=== PATIENT | female | born 1945 | race Caucasian/White ===

== ENCOUNTER 2016-03-18 | Outpatient (CLI) | END 2016-03-18 20:39 | disposition critical access hospital (66) | CPT/HCPCS: A0425; A0429 ==

== ENCOUNTER 2016-03-18 21:06 | Emergency (ER) | payer OTHER ==
[2016-03-18] MEDS ORDERED: ACETAMINOPHEN 325 MG TABLET PO STA (22:42)
[2016-03-18] MEDS ORDERED: ACETAMINOPHEN 325 MG TABLET PO ONE (22:44)
== END 2016-03-19 00:02 | disposition home or self-care (01) ==
DX: S06.0X0A Concussion without loss of consciousness, initial encounter (principal); S00.03XA Contusion of scalp, initial encounter; S20.229A Contusion of unspecified back wall of thorax, initial encounter; W01.0XXA Fall on same level from slipping, tripping and stumbling without subsequent striking against object, initial encounter; M41.9 Scoliosis, unspecified; M51.34 Other intervertebral disc degeneration, thoracic region
CPT/HCPCS: 70450; 72070; 99283; 99284; A9270

== ENCOUNTER 2017-07-17 17:22 | Outpatient (CLI) | payer OTHER ==
--- NOTE | 2017-07-18 22:04 | XRAY Report ---
EXAM: LEFT HIP RADIOGRAPHY EXAM DATE: 07/17/2017 06:05 PM. CLINICAL HISTORY: Hip pain, left, chronic. COMPARISON: None. TECHNIQUE: 2 views. FINDINGS: Bones: Normal. No fractures or bone lesion. Joints: Moderate hip joint space narrowing, some subchondral sclerosis is seen. Marginal osteophytosi s is seen at the femoral head. No bone deformity. Soft Tissues: Normal. No soft tissue swelling. IMPRESSION: 1. Moderate hip joint space narrowing, some subchondral sclerosis. Marginal osteophytosis at the femo ral head. No bone deformity. Kellgren-Paco Grade 3. Kellgren and Paco classification of osteoarthritis: Grade 0: no radiographic features of osteoarthritis are present Grade 1: doubtful joint space narrowing (JSN) and possible osteophytic lipping Grade 2: definite osteophytes and possible JSN on anteroposterior weight-bearing radiograph Grade 3: multiple osteophytes, definite JSN, sclerosis, possible bony deformity Grade 4: large osteophytes, marked JSN, severe sclerosis and definite bony deformity [facility] Referring Provider Line: [phone] SITE ID: [id number]
--- NOTE | 2017-07-18 22:04 | XRAY Report ---
EXAM: LEFT KNEE RADIOGRAPHY EXAM DATE: 07/17/2017 06:06 PM. CLINICAL HISTORY: Hip pain, left, chronic. COMPARISON: None. TECHNIQUE: 3 views. [id number] FINDINGS: Bones: Osteophytosis at the patellofemoral joint both medially and superiorly. Minimal subchondral sc lerosis at the medial and lateral tibial plateau. Joints: Normal. No effusion. No subluxations. Soft Tissues: Normal. No soft tissue swelling. IMPRESSION: 1. Some osteophytosis at the patellofemoral joint both medially and superiorly. Minimal subchondral s clerosis at the medial and lateral tibial plateau. No joint effusion. No fractures. [facility] Referring Provider Line: [phone] SITE ID: [id number]
== END 2017-07-17 17:23 | disposition home or self-care (01) ==
LOC: DI 17:22
PROVIDERS: ATTEND Internal Medicine
DX: M25.562 Pain in left knee (principal); M25.552 Pain in left hip; M25.551 Pain in right hip; M25.762 Osteophyte, left knee

== ENCOUNTER 2017-09-29 11:17 | Outpatient (CLI) | payer MEDICARE | END 2017-09-29 11:18 | disposition home or self-care (01) | LOC: SC 11:17 | PROVIDERS: ATTEND Internal Medicine Pulmonary Disease | DX: G47.10 Hypersomnia, unspecified (principal); R06.83 Snoring; G47.8 Other sleep disorders | CPT/HCPCS: 99203; G0463; 99212 ==

== ENCOUNTER 2017-12-07 19:25 | Outpatient (CLI) | payer MEDICARE | END 2017-12-07 19:26 | disposition home or self-care (01) | LOC: SC 19:25 | PROVIDERS: ATTEND Internal Medicine Pulmonary Disease | DX: G47.33 Obstructive sleep apnea (adult) (pediatric) (principal); G47.61 Periodic limb movement disorder | CPT/HCPCS: 95810 ==

== ENCOUNTER 2018-01-05 09:32 | Outpatient (CLI) | payer MEDICARE | END 2018-01-05 09:33 | disposition home or self-care (01) | LOC: SC 09:32 | PROVIDERS: ATTEND Internal Medicine Pulmonary Disease | DX: G47.33 Obstructive sleep apnea (adult) (pediatric) (principal) | CPT/HCPCS: 99213; G0463; 99212 ==

== ENCOUNTER 2018-08-02 08:02 | Outpatient (CLI) | payer MEDICARE ==
[2018-08-02 19:15] LABS: BUN - BLOOD UREA NITROGEN 17 mg/dL (6-20); CALCIUM 8.9 mg/dL (8.5-10.3); CARBON DIOXIDE - CO2 28 mmol/L (21-32); CHLORIDE 104 mmol/L (101-111); CHOL/HDL RATIO 6.1 (<4.4); CHOLESTEROL 231 mg/dL; CREATININE 0.6 mg/dL (0.4-1.0); GFR - MDRD 99 (>89); GLUCOSE 101 mg/dL (70-100); HDL CHOLESTEROL 38 mg/dL; LDL CHOLESTEROL,CALCULATED 132 mg/dL; LDL/HDL RATIO 3.5 (<4.4); SODIUM 139 mmol/L (135-145); VLDL CHOLESTEROL 61 mg/dL
== END 2018-08-02 08:03 | disposition home or self-care (01) ==
LOC: LAB.F 08:02
PROVIDERS: ATTEND Internal Medicine
DX: E03.9 Hypothyroidism, unspecified (principal); Z13.6 Encounter for screening for cardiovascular disorders
CPT/HCPCS: 36415; 80048; 80061; 83721; 84443

== ENCOUNTER 2019-01-06 09:33 | Day surgery (SDC) | payer MEDICARE ==
[2019-01-06] MEDS ORDERED: LACTATED RINGERS 1,000 ML IV ONE (09:56)
[2019-01-06] MEDS ORDERED: fentaNYL 100 MCG/2 ML VIAL IVP ONE (10:32)
[2019-01-06] MEDS ORDERED: MIDAZOLAM 2 MG/2 ML VIAL IVP ONE (10:32)
[2019-01-06 12:19] VITALS: BP 99/63
== END 2019-01-06 09:34 | disposition home or self-care (01) ==
LOC: SDS 09:33
PROVIDERS: ATTEND Surgery
PROC: 0DJD8ZZ Inspection of Lower Intestinal Tract, Via Natural or Artificial Opening Endoscopic (ICD-10-PCS; principal; 2019-01-06 11:00)
DX: Z12.11 Encounter for screening for malignant neoplasm of colon (principal); K64.8 Other hemorrhoids; E03.9 Hypothyroidism, unspecified; F32.9 Major depressive disorder, single episode, unspecified; J30.2 Other seasonal allergic rhinitis
CPT/HCPCS: G0105; J7120

== ENCOUNTER 2019-12-20 13:17 | Emergency (ER) | payer OTHER, MEDICARE ==
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
--- NOTE | 2019-12-20 14:58 | XRAY Report ---
PROCEDURE: Chest 2 View X-Ray INDICATIONS: cough TECHNIQUE: 2 view(s) of the chest. COMPARISON: None. FINDINGS: Surgical changes and devices: None. Lungs and pleura: No pleural effusions or pneumothorax. Lungs are clear. On the frontal view there is blunting of the lateral right costophrenic sulcus but a definite pleural effusion is not seen. Th is could represent sequela of old trauma or normal variant for the patient. Mediastinum: Mediastinal contours are normal. Heart size is normal. Bones and chest wall: No suspicious bony abnormalities. Soft tissues appear unremarkable. IMPRESSION: Mild blunting of the costophrenic sulcus laterally on the right, no source of cough is f ound. Reviewed by: Quinten Wolfe MD on 12/20/2019 2:56 PM PDT Approved by: Quinten Wolfe MD on 12/20/2019 2:56 PM PDT Station ID: [id number]
[2019-12-20 15:25] VITALS: BP 132/75
== END 2019-12-20 15:28 | disposition home or self-care (01) ==
LOC: ED 13:17
DX: S20.219A Contusion of unspecified front wall of thorax, initial encounter (principal); V43.52XA Car driver injured in collision with other type car in traffic accident, initial encounter; W22.11XA Striking against or struck by driver side automobile airbag, initial encounter; Y92.410 Unspecified street and highway as the place of occurrence of the external cause
CPT/HCPCS: 71046; 93005; 99282; 99283

== ENCOUNTER 2020-03-07 11:39 | Outpatient (CLI) | payer MEDICARE ==
--- NOTE | 2020-03-07 13:23 | XRAY Report ---
PROCEDURE: Hand 2 View BILAT INDICATIONS: PAIN IN JOINT, HAND TECHNIQUE: 2 views of each hand(s) acquired. COMPARISON: None FINDINGS: Bones: No fractures or dislocations. No suspicious bony lesions. Mild periarticular osteophyte for mation at the interphalangeal joints of the digits. Soft tissues: No suspicious soft tissue calcifications. IMPRESSION: Osteoarthritis. No acute fracture. No osseous lesion. If symptoms and/or clinical suspicion for patho logy continue, further assessment with repeat plain films, or advanced imaging (e.g., CT, MRI, or bon e scan) is recommended for further assessment. Reviewed by: Codi Matthews MD on 03/07/2020 1:22 PM PST Approved by: Codi Matthews MD on 03/07/2020 1:22 PM PST Station ID: [id number]
--- NOTE | 2020-03-07 13:24 | XRAY Report ---
PROCEDURE: Hips 2V BILAT INDICATIONS: HIP PAIN, JOINT TECHNIQUE: 2 views of the hip were acquired. COMPARISON: None FINDINGS: Bones: No fractures or dislocations. No suspicious bony lesions. The visualized pelvic ring appear s intact. Mild periarticular osteophyte formation at the bilateral hip joints. Soft tissues: No suspicious soft tissue calcifications or masses. IMPRESSION: Bilateral hip osteoarthritis. No acute fracture. No osseous lesion. If symptoms and/or clinical suspi cion for pathology continue, further assessment with repeat plain films, or advanced imaging (e.g., C T, MRI, or bone scan) is recommended for further assessment. Reviewed by: Codi Matthews MD on 03/07/2020 1:23 PM PST Approved by: Codi Matthews MD on 03/07/2020 1:23 PM PST Station ID: [id number]
[2020-03-07 15:18] LABS: BASOPHILS # (AUTO) 0.1 10^3/uL (0.0-0.1); BASOPHILS % (AUTO) 1.1 %; EOSINOPHILS # (AUTO) 0.2 10^3/uL (0.0-0.7); EOSINOPHILS % (AUTO) 3.1 %; HGB - HEMOGLOBIN 13.4 g/dL (12.0-16.0); LYMPHOCYTES # (AUTO) 2.3 10^3/uL (1.5-3.5); LYMPHOCYTES % (AUTO) 41.9 %; MEAN CORPUSCULAR HEMOGLOBIN 28.9 pg (27.0-31.0); MEAN CORPUSCULAR HGB CONC 32.4 g/dL (32.0-36.0); MEAN CORPUSCULAR VOLUME 89.2 fL (81.0-99.0); MEAN PLATELET VOLUME 10.2 fL (7.9-10.8); MONOCYTES # (AUTO) 0.4 10^3/uL (0.0-1.0); MONOCYTES % (AUTO) 8.1 %; NEUTROPHILS # (AUTO) 2.5 10^3/uL (1.5-6.6); NEUTROPHILS % (AUTO) 45.4 %; PLT - PLATELET COUNT 252 10^3/uL (130-450); RED BLOOD COUNT 4.64 10^6/uL (4.20-5.40); RED CELL DISTRIBUTION WIDTH 13.7 % (12.0-15.0); WHITE BLOOD COUNT 5.5 x10^3/uL (4.8-10.8)
[2020-03-07 15:36] LABS: ALBUMIN 4.2 g/dL (3.2-5.5); ALBUMIN/GLOBULIN RATIO 1.4 (1.0-2.2); ALKALINE PHOSPHATASE 69 IU/L (42-121); ALT ALANINE AMINOTRANSFERASE 20 IU/L (10-60); AST ASPARTATE AMINOTRANSFERASE 18 IU/L (10-42); BILIRUBIN,TOTAL 0.4 mg/dL (0.2-1.0); BUN - BLOOD UREA NITROGEN 16 mg/dL (6-20); CALCIUM 9.2 mg/dL (8.5-10.3); CARBON DIOXIDE - CO2 26 mmol/L (21-32); CHLORIDE 105 mmol/L (101-111); CHOL/HDL RATIO 6.5 (<4.4); CHOLESTEROL 252 mg/dL; CREATININE 0.6 mg/dL (0.4-1.0); GLUCOSE 102 mg/dL (70-100); HDL CHOLESTEROL 39 mg/dL; LDL CHOLESTEROL,CALCULATED 151 mg/dL; LDL/HDL RATIO 3.9 (<4.4); SODIUM 139 mmol/L (135-145); TOTAL PROTEIN 7.2 g/dL (6.7-8.2); VLDL CHOLESTEROL 62 mg/dL
== END 2020-03-07 11:40 | disposition home or self-care (01) ==
LOC: DI.S 11:39
PROVIDERS: ATTEND Internal Medicine
DX: M19.042 Primary osteoarthritis, left hand (principal); M19.041 Primary osteoarthritis, right hand; M16.0 Bilateral primary osteoarthritis of hip; E78.5 Hyperlipidemia, unspecified; E03.9 Hypothyroidism, unspecified; Z79.899 Other long term (current) drug therapy
CPT/HCPCS: 36415; 73521; 80053; 80061; 83721; 84443; 85025

== ENCOUNTER 2020-03-26 12:58 | Outpatient (CLI) | payer MEDICARE ==
--- NOTE | 2020-03-26 19:51 | DEXA Report ---
PROCEDURE: Dexa Spine and/or Hip INDICATIONS: SCREENING FOR OSTEOPOROSIS TECHNIQUE: Dual energy x-ray absorptiometry (DXA) was performed on a Life360 System. Regions measur ed are the AP Spine, femoral neck, and if needed forearm. COMPARISON: None. FINDINGS: Lumbar Spine: Bone Mineral Density 1.325 g/cm/cm,T score 1.2, normal bone density Left Femoral Neck: Bone Mineral Density 0.977 g/cm/cm, T score -0.2, normal bone density (T score greater or equal to -1.0: NORMAL) (T score from -1.1 to -2.4: OSTEOPENIA) (T score less than or equal to -2.5 to: OSTEOPOROSIS) Impression: Normal bone mineral density. Patients with diagnosis of osteoporosis or osteopenia should have regular bone mineral density assess ment. For those eligible for Medicare, routine testing is allowed once every 2 years. Testing frequ ency can be increased for patients who have rapidly progressing disease or for those who are receivin g medical therapy to restore bone mass. Reviewed by: Frederick Roblero MD on 03/26/2020 6:50 PM [place] Approved by: Frederick Roblero MD on 03/26/2020 6:50 PM [place] Station ID: [id number]
== END 2020-03-26 12:59 | disposition home or self-care (01) ==
LOC: DI 12:58
PROVIDERS: ATTEND Registered Nurse
DX: Z13.820 Encounter for screening for osteoporosis (principal)

== ENCOUNTER 2020-05-07 14:42 | Outpatient (CLI) | payer MEDICARE ==
--- NOTE | 2020-05-08 12:36 | Mammography Report ---
BILATERAL DIGITAL SCREENING MAMMOGRAM 3D/2D: 05/07/2020 CLINICAL: Routine screening. Comparison is made to exams dated: 11/24/2016 mammogram, 09/13/2014 mammogram, and 12/08/2012 mammogram - [facility]. There are scattered fibroglandular elements in both amaury sts. There is a 5 mm oval asymmetry with a circumscribed margin in the left breast at 7 o'clock anterior d epth. There is a adjacent dilated duct. This is more prominent. No other significant masses, calcifications, or other findings are seen in either breast. IMPRESSION: INCOMPLETE: NEEDS ADDITIONAL IMAGING EVALUATION The 5 mm oval asymmetry in the left breast is indeterminate. Additional views with possible ultrasou nd are recommended. This exam was interpreted at Station ID: [id number]. NOTE: For mammograms, a report in lay terms will be sent to the patient. Approximately 15% of breast malignancies will not be visualized mammographically. In the management of a palpable breast mass, a negative mammogram must not discourage biopsy of a clinically suspicious lesion. Electronically Signed By: Elizabeth wilkerson/:05/08/2020 09:59:54 ACR BI-RADS Category 0: Incomplete 3340F PARENCHYMAL PATTERN: (A) - The breast(s) demonstrate(s) scattered fibroglandular densities. BI-RADS CATEGORY: (0) - 0 Mammo and [place] [id number] Immediate follow-up LATERALITY: (B)
== END 2020-05-07 14:43 | disposition home or self-care (01) ==
LOC: DI 14:42
PROVIDERS: ATTEND Registered Nurse
DX: Z12.31 Encounter for screening mammogram for malignant neoplasm of breast (principal); N64.89 Other specified disorders of breast

== ENCOUNTER 2020-05-29 13:41 | Outpatient (CLI) | payer MEDICARE ==
--- NOTE | 2020-05-30 15:09 | Ultrasound Report ---
LIMITED ULTRASOUND OF LEFT BREAST AND AXILLA: 05/29/2020 CLINICAL: Patient returns today to evaluate a focal asymmetry in the left breast. Comparison is made to exams dated: 05/29/2020 mammogram, 05/07/2020 mammogram - [facility], 11/24/2016 mammogram, 09/13/2014 mammogram, 12/08/2012 mammogram, and 11/05/2010 mammogram - [facility]. Ultrasound of the left breast 5-8 o'clock, and axilla regions was performed. There is an irregular area of fibroglandular tissue in the left breast at 6 o'clock middle depth. Th is irregular area of fibroglandular tissue is hypoechoic and there is shadowing. This correlates in position, but not in morphology with mammography findings. Color flow imaging demonstrates that ther e is no vascularity present. There also is a benign 0.6 cm x 0.4 cm x 0.3 cm oval cyst adjacent to a duct in the left breast at 7 o'clock anterior depth 3 cm from the nipple. This correlates well with mammography findings. Color flow imaging demonstrates that there is no vascularity present. IMPRESSION: PROBABLY BENIGN The irregular area of fibroglandular tissue in the left breast at 6 o'clock middle depth most likely is fibroglandular tissue and is probably benign. A follow-up left mammogram and an ultrasound in 6 mo nths is recommended to demonstrate stability. The 0.6 cm cm oval cyst in the left breast at 7 o'clock anterior depth is consistent with a simple cy st and is benign. Findings and recommendations were conveyed to the patient at time of exam. This exam was interpreted at Station ID: [id number]. Electronically Signed By: Elizabeth wilkerson/:05/29/2020 15:34:35 Ultrasound BI-RADS: 3 Probably benign BI-RADS CATEGORY: (3) - 3 Mammo and [place] [id number] 6 month follow-up LATERALITY: (L)
--- NOTE | 2020-05-30 15:09 | Mammography Report ---
UNILATERAL LEFT DIGITAL DIAGNOSTIC MAMMOGRAM 3D/2D: 05/29/2020 CLINICAL: Patient returns today to evaluate a focal asymmetry in the left breast. Comparison is made to exams dated: 05/07/2020 mammogram - [facility], 11/24/2016 [facility] mogram, 09/13/2014 mammogram, and 12/08/2012 mammogram - [facility]. Ther e are scattered fibroglandular elements in left breast. There is a 5 mm oval asymmetry with a circumscribed margin in the left breast at 7 o'clock anterior d epth. This is confirmed with additional views. There also is a 1.2 cm irregular equal density asymmetry with a circumscribed margin in the left amaury st at 6 o'clock anterior depth. Finding is seen only on tomography, previously obscured by fibrous t issue. This is seen in additional views and is more prominent. No other significant masses or calcifications are seen in the breast. IMPRESSION: INCOMPLETE: NEEDS ADDITIONAL IMAGING EVALUATION The 5 mm oval asymmetry in the left breast at 7 o'clock anterior depth is indeterminate. The 1.2 cm irregular equal density asymmetry in the left breast at 6 o'clock anterior depth is indete rminate. An ultrasound is recommended. This was performed immediately following this exam. This exam was interpreted at Station ID: [id number]. NOTE: For mammograms, a report in lay terms will be sent to the patient. Approximately 15% of breast malignancies will not be visualized mammographically. In the management of a palpable breast mass, a negative mammogram must not discourage biopsy of a clinically suspicious lesion. Electronically Signed By: Elizabeth wilkerson/:05/29/2020 14:52:29 ACR BI-RADS Category 0: Incomplete 3340F PARENCHYMAL PATTERN: (A) - The breast(s) demonstrate(s) scattered fibroglandular densities. BI-RADS CATEGORY: (0) - 0 Ultrasound [id number] Immediate follow-up LATERALITY: (B)
== END 2020-05-29 13:42 | disposition home or self-care (01) ==
LOC: DI 13:41
PROVIDERS: ATTEND Registered Nurse
DX: R92.8 Other abnormal and inconclusive findings on diagnostic imaging of breast (principal); N60.02 Solitary cyst of left breast

== ENCOUNTER 2020-09-07 16:12 | Outpatient (CLI) | payer MEDICARE ==
[2020-09-07 20:12] LABS: BASOPHILS # (AUTO) 0.1 10^3/uL (0.0-0.1); EOSINOPHILS # (AUTO) 0.3 10^3/uL (0.0-0.7); EOSINOPHILS % (AUTO) 6.7 %; HCT - HEMATOCRIT 42.3 % (37.0-47.0); HGB - HEMOGLOBIN 13.4 g/dL (12.0-16.0); LYMPHOCYTES # (AUTO) 1.6 10^3/uL (1.5-3.5); LYMPHOCYTES % (AUTO) 31.6 %; MEAN CORPUSCULAR HEMOGLOBIN 28.5 pg (27.0-31.0); MEAN CORPUSCULAR HGB CONC 31.7 g/dL (32.0-36.0); MEAN PLATELET VOLUME 10.3 fL (7.9-10.8); MONOCYTES # (AUTO) 0.4 10^3/uL (0.0-1.0); MONOCYTES % (AUTO) 7.8 %; NEUTROPHILS # (AUTO) 2.7 10^3/uL (1.5-6.6); NEUTROPHILS % (AUTO) 52.5 %; PLT - PLATELET COUNT 265 10^3/uL (130-450); RED CELL DISTRIBUTION WIDTH 13.5 % (12.0-15.0); WHITE BLOOD COUNT 5.1 x10^3/uL (4.8-10.8)
[2020-09-07 20:20] LABS: ALBUMIN 4.3 g/dL (3.2-5.5); ALBUMIN/GLOBULIN RATIO 1.4 (1.0-2.2); BILIRUBIN,TOTAL 0.4 mg/dL (0.2-1.0); CALCIUM 8.9 mg/dL (8.5-10.3); CREATININE 0.7 mg/dL (0.4-1.0); POTASSIUM 3.6 mmol/L (3.5-5.0); TOTAL PROTEIN 7.3 g/dL (6.7-8.2)
[2020-09-07 20:39] LABS: THYROID STIMULATING HORMONE 0.75 uIU/mL (0.34-5.60)
== END 2020-09-07 16:13 | disposition home or self-care (01) ==
LOC: LAB.S 16:12
PROVIDERS: ATTEND Internal Medicine
DX: E03.9 Hypothyroidism, unspecified (principal); Z79.899 Other long term (current) drug therapy
CPT/HCPCS: 36415; 80053; 84443; 85025

== ENCOUNTER 2020-12-05 10:35 | Outpatient (CLI) | payer MEDICARE ==
[2020-12-05 14:59] LABS: FREE T3 3.3 pg/mL (2.5-3.9)
[2020-12-05 15:00] LABS: THYROID STIMULATING HORMONE 0.26 uIU/mL (0.34-5.60)
[2020-12-05 15:57] LABS: FREE T4 (FREE THYROXINE) 1.19 ng/dL (0.58-1.64)
== END 2020-12-05 10:36 | disposition home or self-care (01) ==
LOC: LAB.S 10:35
PROVIDERS: ATTEND Internal Medicine
DX: E03.9 Hypothyroidism, unspecified (principal); Z79.899 Other long term (current) drug therapy
CPT/HCPCS: 36415; 84439; 84443; 84481

== ENCOUNTER 2021-01-07 12:28 | Outpatient (CLI) | payer MEDICARE ==
[2021-01-07] MEDS ORDERED: BUFFERED LIDOCAINE 10 ML SYRINGE ONE (12:37)
[2021-01-07] MEDS ORDERED: IOTHALAMATE MEGLUMINE 50 ML VIAL ONE (12:38)
[2021-01-07] MEDS ORDERED: GADOBUTROL 7.5 MMOL/7.5 ML VIAL ONE (12:38)
[2021-01-07] MEDS ORDERED: IOTHALAMATE MEGLUMINE 50 ML VIAL IVP ONE (14:35)
[2021-01-07] MEDS ORDERED: BUFFERED LIDOCAINE 10 ML SYRINGE IU ONE (14:36)
[2021-01-07] MEDS ORDERED: GADOBUTROL 7.5 MMOL/7.5 ML VIAL IVP ONE (14:37)
--- NOTE | 2021-01-07 16:38 | MRI Report ---
PROCEDURE: Arthrogram Hip LT INDICATIONS: PATHOLOGIC DISLOCATION OF BILATERAL HIPS TECHNIQUE: After the administration of 10 mL of dilute intra-articular Gadolinium contrast, coronal STIR of the bony pelvis; coronal and oblique axial T1 spin echo with fat saturation, axial T2 fast spin echo with fat saturation, sagittal T1 spin echo with and without fat saturation of the involved hip. COMPARISON: None. Findings: MUSCULATURE: No edema in the musculature of the imaged hip region. LABRUM: Signal within the superior labrum (501, image 13), compatible with tear. HAMSTRING ATTACHMENT: No significant abnormality. BONES/JOINTS: No fractures or dislocations are identified. Prominent osteophytosis about the lytic l esion. No evidence of irregularity or fragmentation of the femoral heads to suggest avascular necrosi s. Signal heterogeneity and contour irregularity of the hyaline cartilage, compatible with degenerative change. The alpha angle measures approximately 52 degrees. The bone marrow signal intensity is normal for the patient's age. PELVIC STRUCTURES: The lower pelvic intraperitoneal structures are unremarkable. Impression: 1.Superior labral tear. 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 Reviewed by: Mayank Javed MD on 01/07/2021 4:36 PM PDT Approved by: Mayank Javed MD on 01/07/2021 4:36 PM PDT Station ID: [id number]
--- NOTE | 2021-01-07 17:28 | MRI Report ---
PROCEDURE: Arthrogram Hip RT INDICATIONS: PATHOLOGIC DISLOCATION OF BILATERAL HIPS TECHNIQUE: After the administration of 10 mL of dilute intra-articular Gadolinium contrast, coronal STIR of the bony pelvis; coronal and oblique axial T1 spin echo with fat saturation, axial T2 fast spin echo with fat saturation, sagittal T1 spin echo with and without fat saturation of the involved hip. COMPARISON: None. Findings: MUSCULATURE: No edema in the musculature of the imaged hip region. LABRUM: Linear signal in the anterior labrum, compatible tear. Signal heterogeneity of the hyaline ca rtilage. HAMSTRING ATTACHMENT: No significant abnormality. BONES/JOINTS: No fractures or dislocations are identified. No evidence of irregularity or fragmentat ion of the femoral heads to suggest avascular necrosis. The bone marrow signal intensity is normal for the patient's age. PELVIC STRUCTURES: The lower pelvic intraperitoneal structures are unremarkable. Impression: 1.Anterior labral tear. Reviewed by: Mayank Javed MD on 01/07/2021 5:26 PM PDT Approved by: Mayank Javed MD on 01/07/2021 5:26 PM PDT Station ID: [id number]
--- NOTE | 2021-01-08 10:09 | XRAY Report ---
PROCEDURE: Arthrogram Needle Placement INDICATIONS: PATHOLOGIC DISLOCATION OF BILATERAL HIPS CONTRAST: CONTRAST: 0.5 cc Conray. Omnipaque 1cc and Gadavist 0.2cc/20cc normal saline. FLUOROSCOPY TIME: FLUORO TIME: 19sec and NUMBER IMAGES: 1 TECHNIQUE: The indications, alternatives, benefits, risks, and complications of the procedure were explained to the patient. Written informed consent was obtained and placed in the chart. The right hip was exami oswaldo fluoroscopically with the legs fixed in slight internal rotation, and a site for needle placement chosen for entry into the hip joint from an anterior approach. Care was taken to locate the common femoral artery and vein beforehand. The skin was prepped and draped in the usual fashion, and 1% Lid ocaine infiltrated from skin down to joint capsule. A spinal needle was inserted into the joint, and a small amount of iodinated contrast media injected to confirm intra-articular placement of the need le tip. This was followed by approximately 10 mL dilute solution of a gadolinium containing MR contr ast agent. The needle was removed and a dressing was applied. The patient was given postprocedural instructions and sent to the MR suite for imaging. FINDINGS: A single fluoroscopic spot image demonstrates intra-articular location of injected iodinated contrast . IMPRESSION: Successful fluoroscopically guided administration of dilute Gadolinium solution into the right hip cierra int for MR arthrogram. Reviewed by: Yeimi Langston MD, PhD on 01/08/2021 10:08 AM PDT Approved by: Yeimi Langston MD, PhD on 01/08/2021 10:08 AM PDT Station ID: [id number]
--- NOTE | 2021-01-08 10:11 | XRAY Report ---
PROCEDURE: Arthrogram Needle Placement INDICATIONS: PATHOLOGIC DISLOCATION OF BILATERAL HIPS CONTRAST: CONTRAST: 0.5 cc Conray. Omnipaque 1cc and Dotarem 0.2cc/20cc normal saline. FLUOROSCOPY TIME: FLUORO TIME: 19sec and NUMBER IMAGES: 1 TECHNIQUE: The indications, alternatives, benefits, risks, and complications of the procedure were explained to the patient. Written informed consent was obtained and placed in the chart. The left hip was examin ed fluoroscopically with the legs fixed in slight internal rotation, and a site for needle placement chosen for entry into the left hip joint from an anterior approach. Care was taken to locate the com mon femoral artery and vein beforehand. The skin was prepped and draped in the usual fashion, and 1% Lidocaine infiltrated from skin down to joint capsule. A spinal needle was inserted into the left h ip joint, and a small amount of iodinated contrast media injected to confirm intra-articular placemen t of the needle tip. This was followed by approximately 10 mL dilute solution of a gadolinium contai david MR contrast agent. The needle was removed and a dressing was applied. The patient was given postprocedural instructions and sent to the MR suite for imaging. FINDINGS: A single fluoroscopic spot image demonstrates intra-articular location of injected iodinated contrast . IMPRESSION: Successful fluoroscopically guided administration of dilute Gadolinium solution into the left hip dominique fatima for MR arthrogram. Reviewed by: Yeimi Langston MD, PhD on 01/08/2021 10:09 AM PDT Approved by: Yeimi Langston MD, PhD on 01/08/2021 10:09 AM PDT Station ID: [id number]
== END 2021-01-07 12:29 | disposition home or self-care (01) ==
LOC: DI 12:28
PROVIDERS: ATTEND Internal Medicine
DX: S73.192A Other sprain of left hip, initial encounter (principal); S73.191A Other sprain of right hip, initial encounter
CPT/HCPCS: 27093; 73722; 77002; A9585; Q9961

== ENCOUNTER 2021-01-24 09:54 | Outpatient (CLI) | payer MEDICARE ==
--- NOTE | 2021-01-25 08:26 | Mammography Report ---
UNILATERAL LEFT DIGITAL DIAGNOSTIC MAMMOGRAM 3D/2D: 01/24/2021 CLINICAL: Patient returns for a 6 month follow up of the left breast. Comparison is made to exams dated: 05/29/2020 ultrasound, 05/29/2020 mammogram, 05/07/2020 mammogram - [facility], 03/29/2018 mammogram, 11/24/2016 mammogram, and 09/13/2014 mammogram - [facility]. There are scattered fibroglandular elements in left breast. There is a stable benign 5 mm oval asymmetry with a circumscribed margin in the left breast at 7 o'cl ock anterior depth. This is seen in additional views. There also is a stable benign 1.2 cm irregular equal density asymmetry with a circumscribed margin in the left breast at 6 o'clock anterior depth. Finding is seen only on tomography. This is seen in a dditional views. No other significant masses or calcifications are seen in the breast. IMPRESSION: BENIGN There is no mammographic evidence of malignancy. Return to annual mammogram screening schedule is rec ommended. This exam was interpreted at Station ID: [id number]. NOTE: For mammograms, a report in lay terms will be sent to the patient. Approximately 15% of breast malignancies will not be visualized mammographically. In the management of a palpable breast mass, a negative mammogram must not discourage biopsy of a clinically suspicious lesion. Electronically Signed By: Paresh Langford M.D., jr/nicole:01/24/2021 10:32:39 ACR BI-RADS Category 2: Benign Finding(s) 3342F PARENCHYMAL PATTERN: (A) - The breast(s) demonstrate(s) scattered fibroglandular densities. BI-RADS CATEGORY: (2) - 2 Mammogram [id number] return to screening LATERALITY: (B)
== END 2021-01-24 09:55 | disposition home or self-care (01) ==
LOC: DI 09:54
PROVIDERS: ATTEND Internal Medicine
DX: R92.8 Other abnormal and inconclusive findings on diagnostic imaging of breast (principal)

== ENCOUNTER 2021-02-01 14:10 | Outpatient (CLI) | payer MEDICARE ==
[2021-02-01 20:59] LABS: THYROID STIMULATING HORMONE 0.25 uIU/mL (0.34-5.60)
[2021-02-01 21:59] LABS: FREE T4 (FREE THYROXINE) 1.28 ng/dL (0.58-1.64)
== END 2021-02-01 14:11 | disposition home or self-care (01) ==
LOC: LAB.S 14:10
PROVIDERS: ATTEND Internal Medicine
DX: E03.9 Hypothyroidism, unspecified (principal)
CPT/HCPCS: 36415; 84439; 84443

== ENCOUNTER 2021-02-22 16:01 | Outpatient (CLI) | payer MEDICARE ==
--- NOTE | 2021-02-25 06:38 | XRAY Report ---
PROCEDURE: Hips 2V BILAT INDICATIONS: OSTEOARTHRITIS,HIPS,BILATERAL TECHNIQUE: 2 views of the hip were acquired. COMPARISON: None FINDINGS: Bones: No fractures or dislocations. No suspicious bony lesions. The visualized pelvic ring appear s intact. Mild degenerative narrowing is present of the hip joints. Degenerative changes are present lower lumbar spine. Soft tissues: No suspicious soft tissue calcifications or masses. IMPRESSION: Bilateral arthritic changes hips as well as lumbar spine. Reviewed by: Luci Molina MD on 02/22/2021 4:44 PM PST Approved by: Luci Molina MD on 02/22/2021 4:44 PM PST Station ID: [id number]
== END 2021-02-22 16:02 | disposition home or self-care (01) ==
LOC: DI 16:01
PROVIDERS: ATTEND Internal Medicine
DX: M16.0 Bilateral primary osteoarthritis of hip (principal); M47.816 Spondylosis without myelopathy or radiculopathy, lumbar region

== ENCOUNTER 2021-05-03 16:58 | Outpatient (CLI) | payer MEDICARE ==
[2021-05-03 20:12] LABS: THYROID STIMULATING HORMONE 0.2 uIU/mL (0.34-5.60)
[2021-05-03 21:06] LABS: FREE T4 (FREE THYROXINE) 1.29 ng/dL (0.58-1.64)
== END 2021-05-03 16:59 | disposition home or self-care (01) ==
LOC: LAB.S 16:58
PROVIDERS: ATTEND Internal Medicine
DX: E03.9 Hypothyroidism, unspecified (principal)
CPT/HCPCS: 36415; 84439; 84443

== ENCOUNTER 2021-06-19 09:44 | Outpatient (CLI) | payer MEDICARE ==
[2021-06-19 15:13] LABS: BASOPHILS # (AUTO) 0.1 10^3/uL (0.0-0.1); BASOPHILS % (AUTO) 1.2 %; EOSINOPHILS # (AUTO) 0.2 10^3/uL (0.0-0.7); HCT - HEMATOCRIT 42.3 % (37.0-47.0); HGB - HEMOGLOBIN 13.4 g/dL (12.0-16.0); LYMPHOCYTES # (AUTO) 2.4 10^3/uL (1.5-3.5); LYMPHOCYTES % (AUTO) 41.9 %; MEAN CORPUSCULAR HEMOGLOBIN 27.9 pg (27.0-31.0); MEAN CORPUSCULAR HGB CONC 31.7 g/dL (32.0-36.0); MEAN CORPUSCULAR VOLUME 88.1 fL (81.0-99.0); MEAN PLATELET VOLUME 10.2 fL (7.9-10.8); MONOCYTES # (AUTO) 0.5 10^3/uL (0.0-1.0); MONOCYTES % (AUTO) 8.7 %; NEUTROPHILS # (AUTO) 2.5 10^3/uL (1.5-6.6); NEUTROPHILS % (AUTO) 44.8 %; PLT - PLATELET COUNT 253 10^3/uL (130-450); WHITE BLOOD COUNT 5.7 x10^3/uL (4.8-10.8)
[2021-06-19 15:30] LABS: ALBUMIN 4.2 g/dL (3.2-5.5); ALBUMIN/GLOBULIN RATIO 1.6 (1.0-2.2); ALKALINE PHOSPHATASE 59 IU/L (42-121); ALT ALANINE AMINOTRANSFERASE 16 IU/L (10-60); AST ASPARTATE AMINOTRANSFERASE 17 IU/L (10-42); BILIRUBIN,TOTAL 0.5 mg/dL (0.2-1.0); BUN - BLOOD UREA NITROGEN 19 mg/dL (6-20); CALCIUM 9.5 mg/dL (8.5-10.3); CARBON DIOXIDE - CO2 31 mmol/L (21-32); CHLORIDE 99 mmol/L (101-111); CHOL/HDL RATIO 6.4 (<4.4); CHOLESTEROL 236 mg/dL; CREATININE 0.7 mg/dL (0.4-1.0); GFR - MDRD 82 (>89); GLUCOSE 117 mg/dL (70-100); HDL CHOLESTEROL 37 mg/dL; LDL CHOLESTEROL,CALCULATED 145 mg/dL; LDL/HDL RATIO 3.9 (<4.4); POTASSIUM 3.8 mmol/L (3.5-5.0); SODIUM 137 mmol/L (135-145); TOTAL PROTEIN 6.9 g/dL (6.7-8.2); TRIGLYCERIDES 271 mg/dL; VLDL CHOLESTEROL 54 mg/dL
[2021-06-19 15:37] LABS: THYROID STIMULATING HORMONE 1.25 uIU/mL (0.34-5.60)
== END 2021-06-19 09:45 | disposition home or self-care (01) ==
LOC: LAB.S 09:44
PROVIDERS: ATTEND Internal Medicine
DX: E78.5 Hyperlipidemia, unspecified (principal); E03.9 Hypothyroidism, unspecified; Z79.899 Other long term (current) drug therapy
CPT/HCPCS: 36415; 80053; 80061; 83721; 84443; 85025

== ENCOUNTER 2021-10-08 13:50 | Outpatient (CLI) | payer MEDICARE ==
[2021-10-08 20:27] LABS: CALCIUM 9.4 mg/dL (8.5-10.3); CREATININE 0.7 mg/dL (0.4-1.0); POTASSIUM 3.9 mmol/L (3.5-5.0)
[2021-10-08 21:15] LABS: ESTIMATED AVERAGE GLUCOSE 123 mg/dL (70-100); HEMOGLOBIN A1c% 5.9 % (4.27-6.07)
== END 2021-10-08 13:51 | disposition home or self-care (01) ==
LOC: LAB.S 13:50
PROVIDERS: ATTEND Internal Medicine
DX: R73.01 Impaired fasting glucose (principal)
CPT/HCPCS: 36415; 80048; 83036

== ENCOUNTER 2022-09-10 14:35 | Outpatient (CLI) | payer MEDICARE ==
[2022-09-10 19:47] LABS: BASOPHILS # (AUTO) 0.1 10^3/uL (0.0-0.1); BASOPHILS % (AUTO) 0.8 %; EOSINOPHILS # (AUTO) 0.6 10^3/uL (0.0-0.7); EOSINOPHILS % (AUTO) 9.7 %; HCT - HEMATOCRIT 41.2 % (37.0-47.0); HGB - HEMOGLOBIN 13.3 g/dL (12.0-16.0); LYMPHOCYTES # (AUTO) 1.7 10^3/uL (1.5-3.5); LYMPHOCYTES % (AUTO) 27.6 %; MEAN CORPUSCULAR HGB CONC 32.3 g/dL (32.0-36.0); MEAN CORPUSCULAR VOLUME 86.7 fL (81.0-99.0); MONOCYTES # (AUTO) 0.5 10^3/uL (0.0-1.0); MONOCYTES % (AUTO) 7.9 %; NEUTROPHILS # (AUTO) 3.3 10^3/uL (1.5-6.6); NEUTROPHILS % (AUTO) 53.8 %; PLT - PLATELET COUNT 254 10^3/uL (130-450); RED BLOOD COUNT 4.75 10^6/uL (4.20-5.40); WHITE BLOOD COUNT 6.2 x10^3/uL (4.8-10.8)
[2022-09-10 19:57] LABS: ALBUMIN/GLOBULIN RATIO 1.2 (1.0-2.2); ALKALINE PHOSPHATASE 58 IU/L (42-121); ALT ALANINE AMINOTRANSFERASE 16 IU/L (10-60); AST ASPARTATE AMINOTRANSFERASE 19 IU/L (10-42); BILIRUBIN,TOTAL 0.6 mg/dL (0.2-1.0); BUN - BLOOD UREA NITROGEN 17 mg/dL (6-20); CALCIUM 9.2 mg/dL (8.5-10.3); CARBON DIOXIDE - CO2 28 mmol/L (21-32); CHLORIDE 103 mmol/L (101-111); CHOLESTEROL 201 mg/dL; CREATININE 0.7 mg/dL (0.4-1.0); GFR - MDRD 82 (>89); GLUCOSE 109 mg/dL (70-100); HDL CHOLESTEROL 40 mg/dL; LDL CHOLESTEROL,CALCULATED 126 mg/dL; LDL/HDL RATIO 3.2 (<4.4); POTASSIUM 3.9 mmol/L (3.5-5.0); SODIUM 139 mmol/L (135-145); TOTAL PROTEIN 7.3 g/dL (6.7-8.2); TRIGLYCERIDES 173 mg/dL; VLDL CHOLESTEROL 35 mg/dL
[2022-09-10 20:08] LABS: THYROID STIMULATING HORMONE 0.62 uIU/mL (0.34-5.60)
== END 2022-09-10 14:36 | disposition home or self-care (01) ==
LOC: LAB.S 14:35
PROVIDERS: ATTEND Registered Nurse
DX: E78.5 Hyperlipidemia, unspecified (principal); E03.9 Hypothyroidism, unspecified; Z79.899 Other long term (current) drug therapy
CPT/HCPCS: 36415; 80053; 80061; 83721; 84443; 85025

== ENCOUNTER 2022-11-06 10:46 | Outpatient (CLI) | payer MEDICARE ==
--- NOTE | 2022-11-07 12:56 | Mammography Report ---
BILATERAL DIGITAL SCREENING MAMMOGRAM 3D/2D: 11/06/2022 CLINICAL: Routine screening. Comparison is made to exams dated: 01/24/2021 mammogram, 05/29/2020 mammogram, 05/07/2020 mammogram - [facility], 03/29/2018 mammogram, 11/24/2016 mammogram, and 09/13/2014 mammogram - [facility]. There are scattered areas of fibroglandular density in both breasts (category b / 25%-50% glandular t issue). No significant masses, calcifications, or other findings are seen in either breast. There has been no significant interval change. IMPRESSION: NEGATIVE There is no mammographic evidence of malignancy. A 1 year screening mammogram is recommended. Based on the Tyrer Cuzick model (a risk assessment model) the patients lifetime risk is 3.9% and her 10 year risk is 3.9%. According to the ACR, ACS, and NCCN guidelines, an annual breast MRI exam alicia g with mammogram is recommended if the patients lifetime risk is 20% or greater. This exam was interpreted at Station ID: [id number]. NOTE: For mammograms, a report in lay terms will be sent to the patient. Approximately 15% of breast malignancies will not be visualized mammographically. In the management of a palpable breast mass, a negative mammogram must not discourage biopsy of a clinically suspicious lesion. Electronically Signed By: Nic rodriges/nicole:11/06/2022 11:51:36 letter sent: No_Letter ACR BI-RADS Category 1: Negative 3341F PARENCHYMAL PATTERN: (A) - The breast(s) demonstrate(s) scattered fibroglandular densities. BI-RADS CATEGORY: (1) - 1 Mammogram [id number] 1 year screening LATERALITY: (B)
== END 2022-11-06 10:47 | disposition home or self-care (01) ==
LOC: DI 10:46
PROVIDERS: ATTEND Registered Nurse
DX: Z12.31 Encounter for screening mammogram for malignant neoplasm of breast (principal)

== ENCOUNTER 2022-11-06 10:46 | Outpatient (CLI) | payer MEDICARE ==
--- NOTE | 2022-11-06 13:37 | DEXA Report ---
PROCEDURE: Dexa Spine and/or Hip INDICATIONS: POST MENOPAUSAL TECHNIQUE: Dual energy x-ray absorptiometry (DXA) was performed on a [employer] System. Regions measur ed are the AP Spine, femoral neck, and if needed forearm. COMPARISON: 03/26/2020 FINDINGS: Lumbar Spine: Bone Mineral Density 1.39 g/cm/cm,T score 1.7. Since the most recent prior study, there has been a s tatistically significant increase in bone mineral density by 4.9 percent. Right Femoral Neck: Bone Mineral Density 0.886 g/cm/cm, T score -1.1. Baseline. Right Hip: Bone Mineral Density 0.968 g/cm/cm,T score -0.3. Baseline. (T score greater or equal to -1.0: NORMAL) (T score from -1.1 to -2.4: OSTEOPENIA) (T score less than or equal to -2.5 to: OSTEOPOROSIS) Impression: By WHO criteria, this patient has low bone density (osteopenia). Interval statistical increase in bone minteral density of the lumbar spine. Baseline study of the rig ht hip. Patients with diagnosis of osteoporosis or osteopenia should have regular bone mineral density assess ment. For those eligible for Medicare, routine testing is allowed once every 2 years. Testing frequ ency can be increased for patients who have rapidly progressing disease or for those who are receivin g medical therapy to restore bone mass. Reviewed by: Santi Porras on 11/06/2022 1:35 PM PDT Approved by: Santi Porras on 11/06/2022 1:35 PM PDT Station ID: [id number]
== END 2022-11-06 10:47 | disposition home or self-care (01) ==
LOC: DI 10:46
PROVIDERS: ATTEND Registered Nurse
DX: Z78.0 Asymptomatic menopausal state (principal); M85.80 Other specified disorders of bone density and structure, unspecified site

== ENCOUNTER 2023-07-25 13:09 | Outpatient (CLI) | payer MEDICARE ==
--- NOTE | 2023-07-26 17:21 | XRAY Report ---
PROCEDURE: Knee 3V LT INDICATIONS: KNEE PX,LT TECHNIQUE: 3 views of the knee(s) were acquired. COMPARISON: Left knee radiograph on July 17, 2017 FINDINGS: Bones: No fractures or dislocations. Mild tricompartmental joint space narrowing and juxta-articula r osteophytosis. No suspicious bony lesions. Soft tissues: Small knee joint effusion. No suspicious soft tissue calcifications or masses. IMPRESSION: 1.No acute bony abnormality. If there remains a high clinical concern for fracture, consider cross-se ctional imaging now. If pain persists, consider repeat x-ray in 10-14 days or cross-sectional imaging . 2.Mild tricompartmental osteoarthritis, slightly progressed compared to prior dated July 17, 2017 Reviewed by: Elva Fox MD on 07/26/2023 5:20 PM PDT Approved by: Elva Fox MD on 07/26/2023 5:20 PM PDT Station ID: [id number]
== END 2023-07-25 13:10 | disposition home or self-care (01) ==
LOC: DI 13:09
PROVIDERS: ATTEND Emergency Medicine
DX: M17.12 Unilateral primary osteoarthritis, left knee (principal)

== ENCOUNTER 2023-08-08 07:00 | Outpatient (CLI) | payer MEDICARE ==
--- NOTE | 2023-08-08 17:14 | XRAY Report ---
PROCEDURE: Hip w/Pelvis 2-3V LT INDICATIONS: LEFT HIP PAIN TECHNIQUE: 3 views of the hip were acquired. COMPARISON: 02/21/2021. FINDINGS: Bones: No fractures or dislocations. Left hip arthroplasty in place. Hardware appears intact. Possib le thin lucency surrounding the acetabular component. No suspicious bony lesions. Soft tissues: No suspicious soft tissue calcifications or masses. IMPRESSION: Left hip arthroplasty. Possible thin lucency surrounding the acetabular component, comparison to prio r postoperative imaging is recommended. Etiologies such as loosening or infection of the differential and clinical correlation is recommended. Reviewed by: Nic Schaffer MD on 08/08/2023 4:13 PM [place]NE[place] Approved by: Nic Schaffer MD on 08/08/2023 4:13 PM DARNELL Station ID: [id number]
== END 2023-08-08 23:59 | disposition home or self-care (01) ==
LOC: DI.S 07:00
PROVIDERS: ATTEND Physician Assistant Medical
DX: M25.552 Pain in left hip (principal); Z96.642 Presence of left artificial hip joint

== ENCOUNTER 2023-08-08 08:00 | Outpatient (CLI) | payer MEDICARE | END 2023-08-08 08:01 | disposition home or self-care (01) | LOC: LAB.S 08:00 | PROVIDERS: ATTEND Physician Assistant Medical | DX: J32.9 Chronic sinusitis, unspecified (principal) ==

== ENCOUNTER 2023-10-05 13:37 | Outpatient (CLI) | payer MEDICARE ==
[2023-10-05 19:58] LABS: BASOPHILS # (AUTO) 0.1 10^3/uL (0.0-0.1); BASOPHILS % (AUTO) 1.4 %; EOSINOPHILS # (AUTO) 0.1 10^3/uL (0.0-0.7); EOSINOPHILS % (AUTO) 2.4 %; HCT - HEMATOCRIT 41.8 % (37.0-47.0); HGB - HEMOGLOBIN 13.3 g/dL (12.0-16.0); LYMPHOCYTES # (AUTO) 1.5 10^3/uL (1.5-3.5); LYMPHOCYTES % (AUTO) 36.1 %; MEAN CORPUSCULAR HEMOGLOBIN 28.6 pg (27.0-31.0); MEAN CORPUSCULAR HGB CONC 31.8 g/dL (32.0-36.0); MEAN CORPUSCULAR VOLUME 89.9 fL (81.0-99.0); MEAN PLATELET VOLUME 10.6 fL (7.9-10.8); MONOCYTES # (AUTO) 0.3 10^3/uL (0.0-1.0); MONOCYTES % (AUTO) 7.8 %; NEUTROPHILS # (AUTO) 2.2 10^3/uL (1.5-6.6); NEUTROPHILS % (AUTO) 52.1 %; PLT - PLATELET COUNT 253 10^3/uL (130-450); RED BLOOD COUNT 4.65 10^6/uL (4.20-5.40); RED CELL DISTRIBUTION WIDTH 14.2 % (12.0-15.0); WHITE BLOOD COUNT 4.2 x10^3/uL (4.8-10.8)
[2023-10-05 20:12] LABS: ALBUMIN 4.5 g/dL (3.2-5.5); ALBUMIN/GLOBULIN RATIO 1.7 (1.0-2.2); ALKALINE PHOSPHATASE 58 IU/L (42-121); ALT ALANINE AMINOTRANSFERASE 17 IU/L (10-60); AST ASPARTATE AMINOTRANSFERASE 19 IU/L (10-42); BILIRUBIN,TOTAL 0.5 mg/dL (0.2-1.0); BUN - BLOOD UREA NITROGEN 16 mg/dL (6-20); CALCIUM 9.7 mg/dL (8.5-10.3); CARBON DIOXIDE - CO2 31 mmol/L (21-32); CHLORIDE 103 mmol/L (101-111); CHOL/HDL RATIO 5.7 (<4.4); CHOLESTEROL 221 mg/dL; CREATININE 0.6 mg/dL (0.6-1.3); GFR - MDRD 97 (>89); GLUCOSE 105 mg/dL (74-104); HDL CHOLESTEROL 39 mg/dL; LDL CHOLESTEROL,CALCULATED 136 mg/dL; LDL/HDL RATIO 3.5 (<4.4); SODIUM 137 mmol/L (135-145); TOTAL PROTEIN 7.2 g/dL (6.4-8.9); TRIGLYCERIDES 232 mg/dL; VLDL CHOLESTEROL 46 mg/dL
[2023-10-05 20:27] LABS: THYROID STIMULATING HORMONE 0.62 uIU/mL (0.34-5.60)
== END 2023-10-05 13:38 | disposition home or self-care (01) ==
LOC: LAB.S 13:37
PROVIDERS: ATTEND Registered Nurse
DX: E78.5 Hyperlipidemia, unspecified (principal); Z13.228 Encounter for screening for other metabolic disorders; E03.9 Hypothyroidism, unspecified; Z13.0 Encounter for screening for diseases of the blood and blood-forming organs and certain disorders involving the immune mechanism
CPT/HCPCS: 36415; 80053; 80061; 83721; 84443; 85025